=== PATIENT | female | born 1995 | race Caucasian/White ===

== ENCOUNTER 2024-02-17 13:57 | Inpatient (IN) | payer BC, SELFPAY ==
[2024-02-17] VITALS (19 sets, daily range): BP systolic 113–137; BP diastolic 66–91; PULSE 67–91; RESP 16–18; TEMP 36.3–37.1; O2SAT 96–97; BMI 35.3
[2024-02-17 14:01] LABS: Amnisure Rom* POSITIVE
[2024-02-17] MEDS: LACTATED RINGERS 1000 ML 1,000 ML 125 ML IV (14:27)
[2024-02-17] MEDS: AMPICILLIN 2 GM in 0.9 % SODIUM CHLORIDE Mini-bag 100 ML IVPB (14:27)
--- NOTE | 2024-02-17 16:34 | P.OBHP_ITS ---
OB - H&P: HPI Labor/Induction History of Present Illness Date Seen: 02/17/24 Chief Complaint: SROM Chief complaint: Maternity Narrative: The patient is a 29 year old 2 para 0 at 40.3 weeks gestation, who presents with SROM at 1155. States she had some cramping last night. Had gush of clear fluid at 1155 and contractions started shortly after. She had care at [facility] in [place]. Unfortunately [facility] is on divert and patient present to [facility]. On arrival patient was 2cm/70%/- 2/posterior/soft. Citlaly every 3-8 minutes. She is GBS positive. Rh+. No GDM or Htn. Denies headache, vision changes, or other complications in . History of Present Dating criteria: other (unknown) care: good care Ultrasounds: normal 1st trimester US (posterior placenta) Medical complications: none Labs Blood type: other (Rh positive) Rubella: immune RPR/VDLR: unknown GBS status: positive HBsAG: unknown Narrative: - Last Hgb: 13 - One Hour Glucose: normal - Hep C: unknown - HIV: unknown - Treponema: unknown - Gonorrhea: unknown - Chlamydia: unknown Review of Systems Status of ROS: Reports: 10 or more systems reviewed and unremarkable except as noted in History and below Narrative: Denies headache, visual changes, facial edema, epigastric/RUQ pain, N/V, dysuria, or diarrhea. Meds Home Medications and Allergies Home Medications ?Medication ?Instructions ?Recorded ?Confirmed ?Type levothyroxine 175 mcg tablet 175 mcg PO DAILY 02/17/24 02/17/24 History Allergies Allergy/AdvReac Type Severity Reaction Status Date / Time No Known Drug Allergies Allergy Verified 02/17/24 15:29 OB - H&P: Exam Physical Exam: Vital signs: Temp Pulse Resp BP Pulse Ox 98.4 F 73 18 117/68 97 02/17/24 16:20 02/17/24 16:12 02/17/24 16:20 02/17/24 16:12 02/17/24 13:20 Narrative: Gen: alert, oriented, NAD Vaginal exam: 2 cm / 70 % / -2 / vertex Membranes: SROM with clear fluid FHT: Baseline: 140 bpm Variability: moderate Acceleration: present Decelerations: early/late/variables absent [place]: Contractions every 3-6 min OB - Problem Based A/P Additional Plan (1) SROM (spontaneous rupture of membranes): Problem details: clear fluids Status: Acute (2) History of thyroid cancer: Problem details: continue synthroid 175mcg during , decrease synthroid dose after delivery Status: Acute (3) Positive GBS test: Problem details: GBS prophylaxis Status: Acute Plan Admit & anticipate intermittent monitoring Analgesia: desires no medications but would be ok with nitrous or epidural if needed GBS prophylaxis necessary History of thyroid cancer. Patient takes 175mcg Synthroid daily, patient states her plan was to decrease to 150mcg after delivery. Delivery/Labor/Induction Plan Plan: expectant management
[2024-02-17 17:11] LABS: Basophils Absolute Auto 0.05 K/uL (0.00-0.30); Basophils Percent Auto 0.5 % (0.0-3.0); Eosinophils Absolute Auto 0.04 K/uL (0.00-0.50); Eosinophils Percent Auto 0.4 % (0.0-7.0); Hematocrit 39.2 % (33.0-51.0); Hemoglobin* 13.3 gm/dL (12.0-16.0); Immature Granulocytes Abs Auto 0.03 K/uL (0.00-0.30); Immature Granulocytes Pct Auto 0.3 %; Lymphocytes Percent Auto 16.6 % (20-44); Mean Corpuscular HGB Conc 34 gm/dL (32-36); Mean Corpuscular Hemoglobin 29 pg (26-34); Mean Corpuscular Volume 87 fL (80-100); Monocytes Percent Auto 6.3 % (0.0-11.0); Neutrophils Percent Auto 75.9 % (42.0-72.0); Platelet Count* 151 K/uL (140-440); RDW Coefficient of Variation % 12.1 % (11.5-15.5); Red Blood Count 4.52 m/uL (4.00-5.20); White Blood Count* 9.89 K/uL (4.50-11.00)
[2024-02-17 17:16] LABS: Slide Review Reflex No
[2024-02-17] MEDS: AMPICILLIN 1 GM in 0.9 % SODIUM CHLORIDE Mini-bag 100 ML IVPB ×2 (19:09→23:24)
[2024-02-18] VITALS (141 sets, daily range): BP systolic 96–162; BP diastolic 53–89; PULSE 56–119; RESP 15–17; TEMP 36.6–36.9; O2SAT 96–100
[2024-02-18] MEDS: ONDANSETRON 2 MG/ML inj 4 MG IV (00:38)
[2024-02-18] MEDS: LIDOCAINE 2% (PF) 5 ML VIAL EPIDURAL (01:12)
[2024-02-18] MEDS: ROPIVACAINE 0.2 % PF 10 ML INJ 20 MG EPIDURAL (01:12)
[2024-02-18] MEDS: ROPIVACAINE 0.2% 100 ml 100 ML 12 MG EPIDURAL ×2 (01:12→08:45)
[2024-02-18] MEDS: LACTATED RINGERS 1000 ML 1,000 ML 725 ML IV (01:13)
--- NOTE | 2024-02-18 01:21 | P.OBPN_ITS ---
Subjective Date Seen: 02/18/24 Narrative: at 40w4d GA who presented in labor with SROM. She is doing well. Co ntractions are more intense. Last cervical exam /-1/mid position. Amniotic fluid remains clear. GBS positive adequately treated at this time. Patient is getting epidural. Objective Vital Signs: Last Vital Signs Temp 98 F 02/18/24 01:00 Pulse 67 02/18/24 00:54 Resp 18 02/17/24 21:10 BP 124/82 02/18/24 00:54 Pulse Ox 100 02/18/24 01:17 Plan Plan: Continue with current cares. Anticipate .
--- NOTE | 2024-02-18 01:33 | P.ANBPRC_ITS ---
PFSH PFS Social History What is your current living situation?: I presently have a place to live Problems where you live: no known problems In the past 12 months, utilities in danger of being shut off: no In past 12 months, lack of transportation kept you from medical appts, meetings, work, or getting things needed for daily living: no In the past 12 mos, have been you worried that your food would run out before you had money to buy more?: never true In the past 12 mos, the food you bought just didn't last and you didn't have money to buy more?: never true Smoking Status: Never smoker How often does anyone, including family, friends and others, physically hurt you : never How often does anyone, including family, friends and others, insult or talk down to you: never How often does anyone, including family, friends and others, threaten you with harm: never How often does anyone, including family, friends and others, scream or curse at you: never Meds Home Medications and Allergies Home Medications ?Medication ?Instructions ?Recorded ?Confirmed ?Type levothyroxine 175 mcg tablet 175 mcg PO DAILY 02/17/24 02/17/24 History Allergies Allergy/AdvReac Type Severity Reaction Status Date / Time No Known Drug Allergies Allergy Verified 02/17/24 15:29 Results Labs Labs: Laboratory Results - last 24 hr 02/17/24 02/17/24 13:22 14:10 WBC 9.89 RBC 4.52 Hgb 13.3 Hct 39.2 MCV 87 MCH 29 MCHC 34 RDW Coeff of Elif 12.1 Plt Count 151 Neut % (Auto) 75.9 H Lymph % (Auto) 16.6 L [place] % (Auto) 6.3 Eos % (Auto) 0.4 Baso % (Auto) 0.5 Neut # (Auto) 7.50 H Lymph # (Auto) 1.60 [place] # (Auto) 0.60 Eos # (Auto) 0.04 Baso # (Auto) 0.05 Abs Immat Gran (auto) 0.03 Imm/Tot Granulo (auto) 0.3 Membrane Rupture POSITIVE Blood Type AB Positive Antibody Screen NEGATIVE Vital Signs Vital Signs: Last Vital Signs Temp 98 F 02/18/24 01:00 Pulse 87 02/18/24 01:30 Resp 18 08/21/24 21:10 BP 119/73 02/18/24 01:30 Pulse Ox 100 02/18/24 01:32 Weight: 87.543 kg Height: 157.48 cm Anesthesia Procedures Epidural Insertion Patient Location: OB Start Time: Stop Time: : Start Date: 02/18/24 Stop Date: 02/18/24 Reason for Block: procedure for pain Patient Position: sitting Performed By: Jose Arechiga Preanesthetic Checklist: IV checked, risks and benefits discussed, surgical consent, monitors and equipment checked, pre-op evaluation, timeout performed and anesthesia consent Prep: chlorhexidine gluconate Monitoring: blood pressure monitoring, continuous pulse oximetry and heart rate Approach: midline Vertebral Space: lumbar (1-5) Epidural Technique: CHASIDY air Needle Type: Tuohy needle Injection Technique: continuous catheter Needle gauge: 17 Needle Length (cm): 10 cm Needle Insertion Depth (cm): 7 Catheter Gauge: 19 Catheter Type: multi-orifice Catheter at skin depth (cm): 13 Test Dose Result: negative and lidocaine 1.5% with epinephrine 1 to 200,000
[2024-02-18] MEDS: PHENYLEPHRINE 100 MCG/ML SYRINGE IVP ×3 (01:50→03:19)
[2024-02-18] MEDS: LACTATED RINGERS 1000 ML 1,000 ML 125 ML IV (03:22)
[2024-02-18] MEDS: SODIUM CHLORIDE 0.9 % (FLUSH) 10 ML SYRINGE IVF (03:22)
[2024-02-18] MEDS: AMPICILLIN 1 GM in 0.9 % SODIUM CHLORIDE Mini-bag 100 ML IVPB ×2 (03:33→07:30)
[2024-02-18] MEDS: ePHEDrine sulfate 5 MG/ML inj 10 MG IVP (03:59)
--- NOTE | 2024-02-18 08:00 | PM.OBPNL ---
Subjective Date Seen: 02/18/24 Narrative: Meme is a 29 at 40+4 weeks who presented with SROM yesterday at 1155. She made slow cervical change in the evening hours and got an epidural overnight. She was able to get some sleep. This morning was feeling rectal pressure with contractions, now reports that pressure is there all the time with increased pressure during contractions. Her pain is otherwise still well controlled with the epidural. No concerns or questions this morning. Objective Vital Signs: Last Vital Signs Temp 98.1 F 02/18/24 06:34 Pulse 81 02/18/24 07:40 Resp 17 02/18/24 05:49 BP 122/80 02/18/24 07:40 Pulse Ox 98 02/18/24 07:59 Pelvic Exam Dilation (cm): 10 Effacement (%): 100 Station: 0 Contractions Monitor mode: External Contraction Frequency: 4 Contraction pattern: Regular Assessment Assessment: active labor Station: 0 Amniotic Membrane Status: SROM Status: Category l Heart Rate Baseline: 140 Residential Variability: Moderate (6-25) Monitor Accelerations: Present Monitor Decelerations: None Plan Plan: Continue expectant management. patient to start pushing now. Anticipate .
[2024-02-18] MEDS: OXYTOCIN 30 unit/500 ML in NS 30 UNIT/500 ML BAG 300 UNIT IVPB (11:15)
--- NOTE | 2024-02-18 11:44 | W.PM.VAGDEL1 ---
Procedure Delivery date: 02/18/24 Procedure Done: only Intrapartal Events: ROM >18 Hours and Prolonged Labor >20 Hrs Delivery monitor: external FHT and external uterine Route of delivery: Laceration description: Vaginal - 2nd Degree Delivery repair: Vicryl (3-0) Estimated blood loss (mL): 600 Anesthesia type: Epidural Disposition: floor Narrative: The patient is a 29 year-old admitted on 02/17/2024 at 40 Weeks, 4 Days gestation for SROM of clear fluid at 1155.? Cervical exam on admission was 2 cm dilated with membranes ruptured in vertex presentation.? Contractions were irregular.? heart rate demonstrated a category 1 tracing.? SROM occurred at 1155 with clear fluid. She began to contract more regularly throughout the afternoon and evening of 02/16, eventually requiring an epidural 02/18/24 at 0130. ? Labor Analgesia:? epidural ? Pitocin:? post delivery ? Labor onset:? 02/18/2024 0000 ? Complete:? 0740 ? Pushing:? 0748 ? heart tones during second stage were category 1. ? At 1113 a viable female infant delivered in vertex OA presentation over intact perineum via spontaneous vaginal delivery.? Infant was placed on maternal abdomen.? Cord was clamped and cut after a 30-60 second delay.? Nose and mouth were bulb suctioned.? weight pending.? 9 at 1 minute and 9 at 5 minutes.? Shoulder dystocia: no.? Nuchal cord: no. ? Placenta delivered spontaneously and complete at 1117 with a 3 vessel cord. ? Mother and were stable after delivery. ? Lacerations:? 2nd degree vaginal, repaired with 3-0. This laceration was briskly bleeding until running, locking sutures in place. Superficial left labial/periurethral lacerations present which did not require sutures ? Blood loss: 600 mL. Blood loss measurement type: QBL ? Sponge and needles counts are correct. Gender: Female presentation: vertex Placental Delivery Description: Spontaneous Cord Description: 3 Vessels
[2024-02-18] MEDS: DOCUSATE SODIUM 100 MG CAPSULE PO (12:32)
[2024-02-18] MEDS: IBUPROFEN 600 MG TABLET PO ×2 (12:32→19:30)
[2024-02-18 15:28] LABS: Hepatitis B Surface Antigen* Negative (Negative)
[2024-02-18 15:37] LABS: HIV 1/2/P24 Combo Screen* Negative (Negative)
[2024-02-18 15:45] LABS: Hepatitis C Virus Antibody* Negative (Negative)
[2024-02-18] MEDS: ACETAMINOPHEN 500 MG TABLET 1000 MG PO ×2 (16:19→22:02)
[2024-02-18] MEDS: BENZOCAINE/MENTHOL SPRAY 85 GM AEROSOL 1 APPLIC TOPICAL (19:31)
[2024-02-19] VITALS: BP 118/81; PULSE 87; RESP 16; TEMP 36.6; O2SAT 97
[2024-02-19] MEDS: IBUPROFEN 600 MG TABLET PO ×2 (01:49→08:57)
[2024-02-19] MEDS: ACETAMINOPHEN 500 MG TABLET 1000 MG PO ×2 (04:43→15:10)
[2024-02-19 04:55] VITALS: BP 118/81; PULSE 87; RESP 16; TEMP 36.6; O2SAT 97
[2024-02-19] MEDS: LEVOTHYROXINE 150 MCG TAB PO (05:18)
[2024-02-19 06:43] LABS: Hemoglobin* 10.3 gm/dL (12.0-16.0)
[2024-02-19 08:49] VITALS: BP 109/72; PULSE 74; RESP 16; TEMP 36.5; O2SAT 97
[2024-02-19] MEDS: DOCUSATE SODIUM 100 MG CAPSULE PO (08:58)
--- NOTE | 2024-02-19 10:24 | PM.ANPOST ---
Post Anesthesia Note Post Anesthesia Note Patient seen: Inpatient Respiratory Status: adequate Cardiovascular Status: adequate Mental Status: baseline Pain: adequate Temp: baseline Anesthetic awareness: no Complications: none Follow care: none
[2024-02-19 13:15] VITALS: BP 100/69; PULSE 78; RESP 16; TEMP 36.7; O2SAT 96
--- NOTE | 2024-02-19 13:19 | P.DS_ITS ---
DS: Providers Provider Time Seen by Provider: 07:15 Date Seen: 02/19/24 Date of admission: 02/17/24 13:57 Primary care physician: Not a Local Provider Admitting Clinician: Rafaela Alfaro MD Attending Physician on discharge: Lamar Gamboa MD Date of Discharge: 02/19/24 DS: Diagnosis Discharge Diagnosis (1) Vaginal delivery: Status: Acute (2) Positive GBS test: Status: Acute Problem details: GBS prophylaxis (3) History of thyroid cancer: Status: Acute Problem details: continue synthroid 175mcg during , decrease synthroid dose after delivery Exam Const: Vital Signs, click to edit/add: Vital Signs - 24 hr 02/18/24 15:16 02/18/24 19:34 02/19/24 00:00 Temperature 98.2 F 97.8 F 97.8 F Pulse Rate [Pulse Oximeter] 80 90 87 Respiratory Rate 16 16 16 Blood Pressure [Ri ght Arm] 121/79 121/82 118/81 Pulse Oximetry 97 97 97 Oxygen Delivery Me thod Room Air Room Air Room Air 02/19/24 04:55 02/19/24 08:49 02/19/24 13:15 Temperature 97.8 F 97.7 F 98.1 F Pulse Rate [Pulse Oximeter] 87 74 78 Respiratory Rate 16 16 16 Blood Pressure [Ri ght Arm] 118/81 109/72 100/69 Pulse Oximetry 97 97 96 Oxygen Delivery Me thod Room Air Room Air Room Air Common normals: no apparent distress and oriented x3 General appearance: cooperative and comfortable HENMT: Common normals: normocephalic Head and scalp: normocephalic Eye: General eye: normal appearance of both eyes Neck & C-Spine: Common normals: full ROM Resp: Common normals: normal respiratory effort and clear to auscultation bilaterally Auscultation: clear to auscultation bilaterally Cardio: Common normals: regular rate, regular rhythm, S1 normal heart sound and S2 normal heart sound Rate: regular rate Rhythm: regular rhythm Heart sounds: S1 normal and S2 normal : Uterus: U/2 Extremity: Common normals: full ROM Other: mild pedal edema bilaterally Neuro: Common normals: oriented x3 Skin: Common normals: no rashes or lesions noted General skin exam: no rashes or lesions noted OB - DS: Summary Hospital Course Hospital Course: The patient is a 29 year old G 2 P 1 at 38.3 weeks gestation that was admitted to the Center on 02/17/24 for spontaneous rupture after SROM. She unfortunately was diverted from [facility]. She had an uncomplicated vaginal delivery. She delivered a viable female infant. She is breast and bottle feeding. the patient has done well. She did have 600 ml QBL, but was asymptomatic. Bleeding was from laceration (uterus was firm) Peripartum Data Infant delivery method: Vaginal Laceration description: Perineal - 2nd Degree Episiotomy description: None complications: other (PPH with 600 QBL) [place] Gender: Female Discharge Plan: Home Status at Discharge Functional status at discharge: independent ambulation Overall status at discharge: patient is back to baseline Time Spent with Patient Time attestation: Total time spent providing and/or coordinating discharge services: Time spent: Less than 30 minutes Discharge Plan Discharge Disposition: Home, Self-Care Date of Admission: 02/17/24 13:57 Attending Provider on Discharge: Lamar Gamboa Primary Care Provider: Provider,Not a Local Condition: Improved Anticipated Discharge Date/Time: 02/19/24 13:13 Discharge Medications: Continued levothyroxine 175 mcg tablet 175 mcg PO DAILY Discharge Orders: Discharge Order (Routine); Ordered 02/19/24 Ordered By: Lamar Gamboa Patient Education: OB Over the Counter Medication Information, OB Vaginal/Breast Feeding Additional Instructions: Patient to follow up with OB provider in 6 weeks. Activity Level: No Restrictions and Activity as Tolerated Activity Detail: Pelvic rest x 6 weeks. Discharge Diet: Regular Follow Up Appointments: Provider,Not a Local [Primary Care Provider] - Forms: Darudarth Info Instructions Discharge Comments: Follow up with OB provider at 6 weeks .
[2024-02-19 18:18] LABS: Rapid Plasma Reagin (RPR) Non Reactive (Non Reactive)
== END 2024-02-19 17:27 | disposition home or self-care (01) | DRG 560 ==
LOC: OB OUT 15:12 → OB 15:12
PROVIDERS: Family Medicine; Admitting Provider Student in an Organized Health Care Education/Training Program; Visit Provider Student in an Organized Health Care Education/Training Program
DX: O63.0 Prolonged first stage (of labor) (principal); O99.824 Streptococcus B carrier state complicating childbirth; O70.1 Second degree perineal laceration during delivery; Z3A.40 40 weeks gestation of pregnancy; O99.284 Endocrine, nutritional and metabolic diseases complicating childbirth; E03.9 Hypothyroidism, unspecified; Z85.850 Personal history of malignant neoplasm of thyroid; Z37.0 Single live birth
CPT/HCPCS: 01967; 36415; 84112; 85018; 85025; 86592; 86703; 86803; 86850; 86900; 86901; 87340; A9270; J0290; J2371; J2405; J2795; J7120

== ENCOUNTER 2025-01-05 08:08 | Outpatient (CLI) | payer BC, SELFPAY ==
[2025-01-07 07:29] LABS: HPV Source Cervical
== END 2025-01-05 08:09 | disposition home or self-care (01) ==
PROVIDERS: Visit Provider Physician Assistant
DX: Z34.91 Encounter for supervision of normal pregnancy, unspecified, first trimester (principal); Z3A.10 10 weeks gestation of pregnancy
CPT/HCPCS: 86762; 87491; 87591; 87624; 87625; 88141; 88142

== ENCOUNTER 2025-01-30 10:44 | Outpatient (CLI) | payer BC, SELFPAY | END 2025-01-30 10:45 | disposition home or self-care (01) | LOC: NFLDREF 10:44 | PROVIDERS: Visit Provider Obstetrics & Gynecology | DX: Z34.82 Encounter for supervision of other normal pregnancy, second trimester (principal) | CPT/HCPCS: 87086 ==

== ENCOUNTER 2025-03-13 12:35 | Outpatient (CLI) | payer BC, SELFPAY ==
--- NOTE | 2025-03-13 13:00 | CRLHL7_ITS ---
For Patients: As a result of the 21st Century Cures Act, medical imaging exams and procedure reports are released immediately into your electronic medical record. You may view this report before your referring provider. If you have questions, please contact your health care provider. OB ULTRASOUND SURVEY PEACE by US: 07/31/2025. GA: 20 w, 0 d. INDICATION: anatomy survey. TECHNIQUE: Real time wang scale imaging of the fetus was performed. Evaluate anatomy. Transabdominal imaging performed. position: Multiple positions. Cervix: Visualized. Technique: Transabdominal. Length of closed cervix: 3.9 cm. Placenta/cord: Anterior. Technique: Transabdominal. Placenta tip to internal OS: 7.8 cm. Umbilical Cord: 3-vessel cord. Placenta insertion: Central. Amniotic Fluid: 5.7 cm SDP (greater than/equal to: 2- less than 8 cm). SURVEY: Observed Structures. Calvarium/Spine: Cerebellum: 2.1 cm, 21 w 1 d. Cisterna Magna: 5.2 mm. Nuchal Fold: 4.5 mm. Lateral Ventricle: 6.5 mm. CSP: Yes. Midline Falx: Yes. Choroid Plexus: Yes. Spine: Yes. Abdomen: Stomach: Yes. Abd Cord Insertion: Yes. Urinary Bladder: Yes. Kidneys: Yes. Diaphragm: Yes. Face: Nose/lips: Yes. Orbital view: Yes. Profile: Yes. Limbs: Upper Extremities: Yes. Lower Extremities: Yes. Hands: Yes. Feet: Yes. Vascular: 4-Chamber Heart: See impression. LVOT: See impression. RVOT: See impression. 3VV: Not provided. 3VTV: Yes. BPD: 4.6 cm. 20 w, 0 d, 48.4 percent. HC: 17.2 cm. 19 w, 5 d, 31.8 percent. AC: 15.5 cm. 20 w, 5 d, 67.6 percent. FL: 3.3 cm. 20 w, 1 d, 47.4 percent. FL/AC ratio: 20.9 percent. HC/AC ratio: 1.1. heart rate: 144 bpm. age by this US: 20 w, 1 d. PEACE by this US: 07/30/2025. EFW: 348.6 g. Weight: 12 oz. Percentile by PEACE: 66.3 percent. IMPRESSION: 1. Incomplete visualization of the four-chamber heart and outflow tracts due to position. Remainder of the anatomic survey is normal. Short-term follow-up is recommended. 2. Concordance of clinical and sonographic dating. Leonard Mcwilliams M.D. Diagnostic Radiologist [email or web address] DOROTEO/zack dixon/Dictated by: Leonard Mcwilliams MD @ 03/13/2025 3:01:00 PM (Electronically Signed)
== END 2025-03-13 12:36 | disposition home or self-care (01) ==
LOC: US 12:36
PROVIDERS: Visit Provider Obstetrics & Gynecology
DX: Z34.92 Encounter for supervision of normal pregnancy, unspecified, second trimester (principal); Z3A.20 20 weeks gestation of pregnancy
CPT/HCPCS: 76805

== ENCOUNTER 2025-04-13 13:50 | Outpatient (CLI) | payer BC, SELFPAY ==
--- NOTE | 2025-04-13 14:00 | CRLHL7_ITS ---
For Patients: As a result of the Century Cures Act, medical imaging exams and procedure reports are released immediately into your electronic medical record. You may view this report before your referring provider. If you have questions, please contact your health care provider. OBSTETRICAL ULTRASOUND ??? FOLLOW-UP INDICATION: Follow-up missing heart views from anatomy survey. CLINICAL HISTORY: PEACE by Ultrasound: 07/31/2025 Gestational Age: 24 weeks 3 days COMPARISON: 03/13/2025 TECHNIQUE: Real-time wang-scale transabdominal imaging of the fetus was performed. FINDINGS: Fetus: Single Cervix: Not visualized positioning: Transverse Amniotic Fluid: 5.6 cm SDP Placenta technique: Transabdominal Placenta position: Anterior heart rate: 145 bpm IMPRESSION: Normal four-chamber heart, LVOT and RVOT. LEONARD ART M.D. Diagnostic Radiologist [email or web address] Transcribed: 11:[address]/Dictated by: Leonard Art MD @ 04/17/2025 10:54:00 AM (Electronically Signed)
== END 2025-04-13 13:51 | disposition home or self-care (01) ==
LOC: US 13:50
PROVIDERS: Visit Provider Obstetrics & Gynecology
DX: O99.282 Endocrine, nutritional and metabolic diseases complicating pregnancy, second trimester (principal); E03.9 Hypothyroidism, unspecified; Z3A.24 24 weeks gestation of pregnancy
CPT/HCPCS: 76816

== ENCOUNTER 2025-05-09 14:14 | Outpatient (CLI) | payer BC, SELFPAY | END 2025-05-09 14:15 | disposition home or self-care (01) | LOC: NFLDREF 05-16 06:20 | PROVIDERS: Visit Provider Obstetrics & Gynecology | DX: Z34.93 Encounter for supervision of normal pregnancy, unspecified, third trimester (principal) | CPT/HCPCS: 86592 ==

== ENCOUNTER 2025-05-11 07:52 | Outpatient (CLI) | payer BC, SELFPAY | END 2025-05-11 07:53 | disposition home or self-care (01) | LOC: NFLDREF 05-16 21:01 | PROVIDERS: Visit Provider Obstetrics & Gynecology | DX: R73.09 Other abnormal glucose (principal); Z34.93 Encounter for supervision of normal pregnancy, unspecified, third trimester | CPT/HCPCS: 82951; 82952 ==

== ENCOUNTER 2025-06-10 15:27 | Outpatient (CLI) | payer BC, SELFPAY ==
[2025-06-10 15:51] VITALS: BP 122/84; PULSE 72; PULSE 75; RESP 16; TEMP 36.6; O2SAT 97
[2025-06-10 16:35] LABS: Amnisure Rom* Negative
[2025-06-10 17:08] LABS: Appearance Urine Clear (Clear)
--- NOTE | 2025-06-10 17:11 | PC.OBNST ---
NST Note NST Note Start: 06/10/25 15:38 Freq: ONCE Status: Active Protocol: Document 06/10/25 17:09 ABP (Rec: 06/10/25 17:11 ABP No Response) NST Note 4 Para (# of births) 1 EDC 07/31/25 Gestational Age In 32 Weeks & 5 Days Weeks & Days Patient Presented Contractions/cramping,Leaking fluid with Complaint(s) of Reactive Yes Appropriate for Yes Gestational Age EMIL Ramsey RN Date 06/10/25 Reactive Yes Appropriate for Yes Gestational Age EMIL Baird RN Date 06/10/25 OB NST charge Yes Complete NST Note Yes via Write Note The provider's electronic signature indicates the NST is reactive/appropriate for gestational age. *Note to provider: If an addendum is required, open the patient's chart and click on the note under the Nurse/Allied Health tab.
[2025-06-10 17:28] LABS: Trichomonas No Trichomonas Seen (None Seen)
== END 2025-06-10 17:12 | disposition home or self-care (01) ==
LOC: OB OUT 15:27 → OB 15:28
PROVIDERS: Visit Provider Obstetrics & Gynecology
DX: O47.03 False labor before 37 completed weeks of gestation, third trimester (principal); Z3A.32 32 weeks gestation of pregnancy
CPT/HCPCS: 59025; 81001; 81003; 84112; 87086; 87210; G0463